=== PATIENT | male | born 1940 ===

== ENCOUNTER 2016-04-15 07:06 | Inpatient (IN) | payer OTHER ==
[~2016-04-15] VITALS: Ht 157.5 cm; Wt 68.0 kg
[2016-04-15] VITALS (9 sets, daily range): BP systolic 101–135; BP diastolic 62–86
[~2016-04-15 07:06] MED LIST: Propofol 10mg/ml 20ml IV ONE; ceFAZolin 1gm/50ml Premix 50 ML IV ONE; celeBREX 200mg Cap **SURGERY PATIENTS ONLY ORAL ONE; oxyCONTIN 20mg tab ORAL ONE
--- NOTE | 2016-04-15 07:09 | Anethesia Preoperative Eval ---
Anesthesia Pre-op PMH/ROS General Date of Evaluation: Apr 15, 2016 Anesthesiologist: Liban ASA Score: ASA 2 Mallampati Score Class I : Soft palate, uvula, fauces, pillars visible Class II: Soft palate, uvula, fauces visible Class III: Soft palate, base of uvula visible Class IV: Only hard plate visible Mallampati Classification: Class II Surgeon: Forest Diagnosis: Left knee osteoarthritis Surgical Procedure: Left total knee replacement Anesthesia History: none Family History: no anesthesia problems Allergies: Coded Allergies: No Known Allergies (Unverified , 04/14/16) Past Medical History Cardiovascular: Denies: CAD, HTN, CA, arrhythmia, other, valve dz Pulmonary: Denies: COPD, KYLIE, asthma, other Gastrointestinal/Genitourinary: Reports: GERD, Denies: CRI, ESRD, other Endocrine: Denies: DM, hypothyroidism, other, steroids [place]: Denies: [place] (L), [place] (R), cataract (L), cataract (R), glaucoma, other Hematology/Immune: Denies: DVT, anemia, bleeding disorder, other Musculoskeletal/Integumentary: Reports: OA, Denies: DDD, DJD, RA, edema, other PSxH Narrative: Right total hip replacement, left knee sx Anesthesia Pre-op Phys. Exam Physician Exam see chart Constitutional: NAD Cardiovascular: RRR Respiratory: CTA Airway Exam Mallampati Score: Class II MO: full ROM: full Teeth: intact Anesthesia Pre-op A/P Labs see chart Studies Pre-op Studies: EKG - sb Risk Assessment & Plan Assessment: ASA II Plan: Left femoral nerve block followed by SAB and mild sedation Status Change Before Surgery: No Pre-Antibiotics Drug: Ancef 1g Given Within 1 Hr of Incision: Yes Time Given: 09:20 LOPZE WINSTON M.D. Apr 15, 2016 07:09
--- NOTE | 2016-04-15 07:21 | Pre-Procedure Note/Attestation ---
Pre-Procedure Note/Attestation Complete Prior to Procedure Planned Procedure: left Procedure Narrative: tka Indications for Procedure Pre-Operative Diagnosis: left knee chondral damage Attestation I attest that I discussed the nature of the procedure; its benefits; risks and complications; and alternatives (and the risks and benefits of such alternatives ), prior to the procedure, with the patient (or the patient's legal malt liquors sales representative). I attest that, if there was a reasonable possibility of needing a blood transfusion, the patient (or the patient's legal malt liquors sales representative) was given the [facility] standardized written summary, pursuant to the Sebastian Cecilio Blood Safety Act ([place] Health and Safety Code # 1645, as amended). I attest that I re-evaluated the patient just prior to the surgery and that there has been no change in the patient's H&P, except as documented below: COLIN SINGH Apr 15, 2016 07:21
--- NOTE | 2016-04-15 07:22 | Operative Note - PDOC ---
Operative Note Operative Note Pre-op Diagnosis: left knee chondral damage Procedure: left tka Post-op Diagnosis: same as pre-op plus Operative Findings: consistent w/pre-op dx studies Anesthesia: regional Specimen: yes Complications: none Condition: stable Estimated Blood Loss: minimal Implant(s) used?: Yes COLIN SINGH Apr 15, 2016 07:22
[2016-04-15] MEDS ORDERED: NKM (07:37)
[2016-04-15] MEDS ORDERED: Kenalog-40 1ml Vial ONE (08:00)
[2016-04-15] MEDS ORDERED: Morphine Sulfate PF 10 ML ONE (08:00)
[2016-04-15] MEDS ORDERED: Ketorolac 30mg Inj ONE ×2 (08:00→08:15)
[2016-04-15] MEDS ORDERED: Bupivacaine w/Epi 0.25% 30ml Vial INJ ONE (08:01)
[2016-04-15] MEDS ORDERED: Bacitracin 50000 Units Vial ONE (08:01)
[2016-04-15] MEDS ORDERED: celeBREX 200mg Cap **SURGERY PATIENTS ONLY ORAL ONE (08:06)
[2016-04-15] MEDS ORDERED: Ropivacaine 5mg/ml Vial 20ml INJ ONE (08:15)
[2016-04-15] MEDS ORDERED: DiphenhydrAMINE 50mg/ml Inj ONE (08:28)
[2016-04-15] MEDS ORDERED: Ketorolac 30mg Inj IM ONE (09:00)
[2016-04-15] MEDS ORDERED: celeBREX 200mg Cap **SURGERY PATIENTS ONLY ORAL SCH (09:00)
[2016-04-15] MEDS ORDERED: LR 1000ml ONE (09:00)
[2016-04-15] MEDS ORDERED: Propofol 10mg/ml 20ml IV ONE (09:00)
[2016-04-15] MEDS ORDERED: Duramorph PF 10mg/10ml amp IV ONE (09:00)
[2016-04-15] MEDS ORDERED: Lidocaine 1% MPF 10mg/ml 5ml ONE (09:00)
[2016-04-15] MEDS ORDERED: LR 1000ml 1,000 ML IVLG SCH (09:38)
--- NOTE | 2016-04-15 09:40 | Immediate Post-Op Evaluation ---
Immediate Post-Op Evalulation Immediate Post-Op Evalulation Procedure: Left total knee replacement Date of Evaluation: Apr 15, 2016 Time of Evaluation: 10:57 IV Fluids: 1.3L Blood Products: 0 Estimated Blood Loss: 100 Urinary Output: 300 Blood Pressure Systolic: 101 Blood Pressure Diastolic: 65 Pulse Rate: 72 Respiratory Rate: 16 O2 Sat by Pulse Oximetry: 100 Temperature (Fahrenheit): 97 Pain Score (1-10): 0 Nausea: No Vomiting: No Complications 0 Patient Status: awake, reacts, patent, none Hydration Status: adequate Drug: Ancef 1g Given Within 1 Hr of Incision: Yes Time Given: 07:20 LOPEZ WINSTON M.D. Apr 15, 2016 09:40
[2016-04-15] MEDS ORDERED: Hydromorphone 0.5mg/0.5ml inj IVP PRN (09:45)
[2016-04-15] MEDS ORDERED: DiphenhydrAMINE 50mg/ml Inj IVP PRN (09:45)
[2016-04-15] MEDS ORDERED: fentaNYL 100 mcg/2 mL IV PRN (09:45)
[2016-04-15] MEDS ORDERED: Labetalol 5mg/ml 20ml vial IV PRN (09:45)
[2016-04-15] MEDS ORDERED: Tranexamic Acid 1,000 MG in NS 55 ML IVPB ONE (10:00)
[2016-04-15] MEDS ORDERED: Bupivacaine w/Epi 0.5% 30ml Vial INJ ONE (10:14)
--- NOTE | 2016-04-15 13:55 | Diagnostic Imaging Report ---
Indication: Status post knee replacement 2 views of the left knee were obtained. Findings: Total knee arthroplasty demonstrated. There is intra-articular air. There is no fracture or malalignment. Impression: Total knee arthroplasty formation.
[2016-04-15] MEDS ORDERED: Morphine Sulfate 4mg/ml Inj IVP PRN (14:00)
[2016-04-15] MEDS ORDERED: oxyCODONE 5mg IR tab ORAL PRN (14:00)
[2016-04-15] MEDS ORDERED: Milk of Magnesia 30ml Ud ORAL PRN (14:00)
[2016-04-15] MEDS ORDERED: Morphine Sulfate 2mg/ml Inj IVP PRN ×2 (14:00)
[2016-04-15] MEDS: Acetaminophen 500mg (ES) tab ORAL SCH ×2 (14:05→17:31)
[2016-04-15] MEDS: D5 1/2NS w/KCl 20mEq 1,000 ML IV SCH ×2 (14:35→22:04)
[2016-04-15] MEDS: ceFAZolin sod 2 GM in D5W 110 ML IV SCH (17:30)
--- NOTE | 2016-04-15 21:49 | Operative Note - Dictated ---
DATE OF OPERATION: 04/15/2016 PREOPERATIVE DIAGNOSIS: Left knee posttraumatic arthritis. POSTOPERATIVE DIAGNOSIS: Left knee posttraumatic arthritis. PROCEDURE: Left total knee arthroplasty. SURGEON: Tyrell Garg M.D. ANESTHESIA: Spinal with femoral adductor block. INDICATION FOR PROCEDURE: This is a pleasant gentleman, who has had progressive left knee pain advancing to the point where it is very symptomatic. He failed conservative treatment and elected to undergo left total knee arthroplasty. Risks, limitations, expectations, and complications of the procedure were discussed in detail. All questions addressed. DESCRIPTION OF PROCEDURE: After informed consent was obtained, the patient was brought to the operating room and placed under spinal femoral adductor block. Erickson catheter was placed. Ancef was administered. Tourniquet was applied to the left proximal thigh. Left leg was prepped and draped in a sterile manner. Time-out was performed. Esmarch was used to exsanguinate the extremity. Anterior skin incision was then made. Subvastus arthrotomy was performed. Distal femur was well visualized. Distal femoral cutting block was placed. Distal femur was resected. Sizing block was placed of size 4. One in one chamfer cutting block was placed in the distal femur. Anterior and posterior chamfer cuts were then made. The proximal tibia was well visualized. External tibial cutting guide was then placed. Proximal tibia was resected. A medial and lateral meniscus was removed along with the ACL and PCL. Size 3+4, 11 mm insert was selected and knee came out to full extension. Good stability to full extension, 10 degrees flexion, and 90 degrees flexion. No mid flexion instability. At this point, the tibial tray was appropriately externally rotated and punch was then placed. Once that was done, patella was everted and measured 22 mm. Freehand resection was performed. A 31 mm patellar component was selected. It was elevated to 24 to make up differences in subchondral damage in the facet. At this point, cement was prepared and implants were impacted into place. Excess cement was removed. Periarticular injection containing 0.25% Marcaine with epinephrine, 30 mL of Toradol, 5 mL of Duramorph, and 40 mg of Kenalog was injected into the popliteal fossa area prior to the implantation. The arthrotomy site was closed with #0 Vicryl suture, 2-0 Vicryl suture, and 3-0 Monocryl sutures. Dermabond dressing and compression dressing was applied. The patient was awoken and taken to recovery room with stable vital signs. ESTIMATED BLOOD LOSS: Minimal. COMPLICATIONS: None. SPECIMENS: Good bone cuts. IMPLANTS: Include a Ashok Triathlon size 4 femoral component, size 3 tibial tray with a 11 mm insert with 31 mm patellar component. Tyrell Garg M.D. DR: MICHELLE JOB#: [id number] CC: MILAN
[2016-04-15] MEDS: oxyCONTIN 20mg tab ORAL SCH (22:03)
[2016-04-16] VITALS: BP 122/69
[2016-04-16] MEDS: ceFAZolin sod 2 GM in D5W 110 ML IV SCH (00:53)
[2016-04-16 04:00] VITALS: BP 111/67
[2016-04-16] MEDS: D5 1/2NS w/KCl 20mEq 1,000 ML IV SCH (04:32)
[2016-04-16 08:00] VITALS: BP 128/73
--- NOTE | 2016-04-16 08:16 | History & Physical ---
History and Physical History & Physicial 3-10 HP reviewed care noted d/w MARSHALL SHERIDAN Apr 16, 2016 08:15
--- NOTE | 2016-04-16 08:16 | General Progress Note ---
Assessment/Plan Assessment/Plan Left total knee arthroplasty. Left knee pain/injury PLAN 1. incentive spirometry 2. DVT prophylaxis 3. PT evaluation and therapy 4. Hydration 5. Pain management 6. discharge once stable with outpatient follow up Subjective Allergies: Coded Allergies: No Known Allergies (Unverified , 04/14/16) Subjective no pain doing well Objective Last 24 Hour Vital Signs Date Time Temp Pulse Resp B/P Pulse Ox O2 Delivery O2 Flow Rate FiO2 04/16/16 04:00 97.0 50 22 111/67 95 Room Air 04/16/16 00:00 97.3 59 19 122/69 95 Room Air 04/15/16 20:00 97.7 61 18 135/77 96 Room Air 04/15/16 16:00 97.2 57 16 130/78 95 Room Air 04/15/16 11:40 98.0 69 20 134/74 99 Nasal Cannula 2.0 04/15/16 11:23 79 18 132/86 100 Nasal Cannula 3.0 04/15/16 11:13 78 20 127/70 100 Nasal Cannula 3.0 04/15/16 11:02 72 20 103/69 100 Nasal Cannula 3.0 04/15/16 10:57 66 20 106/62 100 Simple Mask 8.0 04/15/16 10:57 72 16 100 04/15/16 10:52 97.0 76 20 101/65 100 Simple Mask 8.0 Intake and Output 04/15/16 04/16/16 19:00 07:00 Intake Total 1300 ml 1140 ml Output Total 400 ml 3300 ml Balance 900 ml -2160 ml Intake Oral 240 ml IV Total 1300 ml 900 ml Output Urine Total 300 ml 3300 ml Estimated Blood Loss 100 ml Height (Feet): 5 Height (Inches): 2.00 Weight (Pounds): 150 Objective WDWN NAD clear breath sounds bilaterally without rhonchi or wheeze [id number] without MRG NABS nontender no HSM no CCE nonfocal MARSHALL WILSON Apr 16, 2016 08:16
[2016-04-16] MEDS: oxyCONTIN 20mg tab ORAL SCH (08:48)
[2016-04-16] MEDS: Acetaminophen 500mg (ES) tab ORAL SCH ×2 (08:48→12:31)
[2016-04-16] MEDS ORDERED: celeBREX 200mg Cap **SURGERY PATIENTS ONLY ORAL SCH (09:00)
[2016-04-16 09:57] LABS: BASOPHILS % (AUTO) 0.4 % (0.0-2.0); EOSINOPHILS % (AUTO) 0.1 % (0.0-3.0); LYMPHOCYTES % (AUTO) 9.5 % (20.0-45.0); MEAN CORPUSCULAR HEMOGLOBIN 31.2 PG (27.0-31.0); MEAN CORPUSCULAR HGB CONC 34.1 G/DL (32.0-36.0); MEAN CORPUSCULAR VOLUME 92 FL (80-99); MEAN PLATELET VOLUME 7.4 FL (6.5-10.1); MONOCYTES % (AUTO) 8.7 % (1.0-10.0); NEUTROPHILS % (AUTO) 81.3 % (45.0-75.0); PLATELET COUNT 180 K/UL (150-450); RED BLOOD COUNT 3.84 M/UL (4.70-6.10); RED CELL DISTRIBUTION WIDTH 12.1 % (11.6-14.8); WHITE BLOOD COUNT 10.6 K/UL (4.8-10.8)
[2016-04-16 09:59] LABS: ANION GAP 12 (5-15); CALCIUM 8.6 mg/dL (8.6-10.2); CARBON DIOXIDE 25 mEQ/L (20-30); CHLORIDE 103 mEQ/L (98-107); CREATININE 0.7 mg/dL (0.7-1.2); HEMOLYSIS 5; POTASSIUM 4.5 mEQ/L (3.4-4.9); SODIUM 140 mEQ/L (135-145)
[2016-04-16] MEDS ORDERED: Ketorolac 30mg Inj IV PRN (10:45)
[2016-04-16 11:55] VITALS: BP 111/64
[2016-04-16] MEDS ORDERED: Enoxaparin 40mg Inj SUBQ SCH (12:15)
[2016-04-16 16:00] VITALS: BP 142/79
[2016-04-16 16:24] VITALS: BP 111/64
--- NOTE | 2016-04-16 16:24 | 48 Hour Post Anesthesia Eval ---
Post Anesthesia Evaluation Procedure: Left total knee replacement Date of Evaluation: Apr 16, 2016 Time of Evaluation: 13:00 Blood Pressure Systolic: 111 0: 64 Pulse Rate: 60 Respiratory Rate: 20 Temperature (Fahrenheit): 97.7 O2 Sat by Pulse Oximetry: 94 Airway: patent Nausea: No Vomiting: No Pain Intensity: 0 Hydration Status: adequate Cardiopulmonary Status: at baseline Mental Status/LOC: patient returned to baseline Post-Anesthesia Complications: 0 Follow-up care needed: N/A - further care as per primary team LOPEZ WINSTON M.D. Apr 16, 2016 16:24
[2016-04-16] MEDS ORDERED: Tubing IV Secondary IV ONE (16:42)
[2016-04-16] MEDS ORDERED: oxyCONTIN 20mg tab ORAL ONE (17:00)
[2016-04-18] MEDS ORDERED: NORCO 5-325 TA1 EACH ORAL (13:53)
--- NOTE | 2016-04-18 13:57 | Discharge Summary ---
Discharge Summary Hospital Course Date of Admission Apr 15, 2016 at 07:06 Date of Discharge Apr 16, 2016 at 16:43 Admitting Diagnosis left knee posttraumatic arthritis Reason for Hospitalization: elective surgery HPI 75 year old male was admitted on Apr 15, 2016 at 07:06 for left knee posttraumatic antritis and elective surgery Consultations dr Arcos IM Procedures S/P Left total knee arthroplasty by dr Garg on 04/15/16 Hospital Course s/p elective surgery course of recovery uneventful incentive spirometry at the bedside and taught how to use DVT prophylaxis PT evaluation and therapy fall precautions adequate hydration pain management fup as outpt with surgery DISCHARGE DIAGNOSIS Left knee posttraumatic arthritis Left knee chondral damage S/P Left total knee arthroplasty. Left knee pain/injury 1 Discharge Medications New Medications: Hydrocodone Bit/Acetaminophen 5-325* ([place] 5-325*) 1 Each Tablet 1 TAB ORAL Q4H PRN, #20 TAB 0 Refills Discharge Condition Upon Discharge: stable Discharge Disposition Patient was discharged to Home (01) Discharge Diagnoses: Discharge Instructions Discharge Instructions Special Instructions I have been assigned to complete a D/C Summary on this account. I was not involved in the patient management Naida Frank NP ([place]) Apr 18, 2016 13:57
== END 2016-04-16 16:43 | disposition home health service (06) | DRG 470 ==
LOC: SDSOVERFLO 07:06 → 3E 12:00
PROC: 0SRD0J9 Replacement of Left Knee Joint with Synthetic Substitute, Cemented, Open Approach (ICD-10-PCS; principal; 2016-04-15 08:45)
DX: M17.32 Unilateral post-traumatic osteoarthritis, left knee (principal); F17.200 Nicotine dependence, unspecified, uncomplicated; W19.XXXS Unspecified fall, sequela; Z96.641 Presence of right artificial hip joint
CPT/HCPCS: 36415; 80048; 85025; 86850; 86900; 86901; 87081; 94003; 94150